=== PATIENT | male | born 1995 ===

== ENCOUNTER 2019-03-25 00:19 | Emergency (ER) | payer MEDICAID ==
[2019-03-25 00:27] VITALS: BP 123/74
[2019-03-25] MEDS ORDERED: BOOSTRIX IM ONE (03:10)
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
--- NOTE | 2019-03-25 03:35 | XRay Report ---
RIGHT FOOT 3 VIEWS. INDICATION / CLINICAL INFORMATION: right foot pain COMPARISON: None available. FINDINGS: BONES / JOINT(S): No acute fracture or subluxation. No significant arthritis. SOFT TISSUES: Soft tissue injury great toe distally. Possible punctate foreign body. ADDITIONAL FINDINGS: None. Signer Name: Prasad Busch MD Signed: 03/25/2019 3:30 AM Workstation Name: [id number]
== END 2019-03-25 04:10 | disposition home or self-care (01) ==
LOC: ED 00:19
DX: S96.911A Strain of unspecified muscle and tendon at ankle and foot level, right foot, initial encounter (principal); S90.811A Abrasion, right foot, initial encounter; F17.200 Nicotine dependence, unspecified, uncomplicated; Z79.899 Other long term (current) drug therapy; V09.9XXA Pedestrian injured in unspecified transport accident, initial encounter; Y93.89 Activity, other specified; Y92.488 Other paved roadways as the place of occurrence of the external cause; Y99.8 Other external cause status
CPT/HCPCS: 90471; 90715; 99283